=== PATIENT | male | born 1995 | race Caucasian/White ===

== ENCOUNTER 2017-02-10 10:04 | Day surgery (SDC) | payer OTHER ==
[~2017-02-10] VITALS: Ht 177.8 cm; Wt 104.5 kg
[2017-02-10] VITALS (10 sets, daily range): BP systolic 150–168; BP diastolic 64–90; PULSE 86–127; RESP 12–22; O2SAT 96–100
--- NOTE | 2017-02-10 06:41 | PCM.HPANE ---
Patient Data Surgeon Admitting Provider: Attending Provider:Hoa Ahmadi MD Primary Care Physician:Kenia Arora Other Provider:Chadd Duque Anesthesia Reason for Visit Orif Right 4TH& 5TH Metacarpal Ht/WT & BMI Height (Feet): 5 Height (Inches): 10 Weight (Kilograms): 108.86 Body Mass Index 34.00 Allergies Coded Allergies: Penicillins (Verified Allergy, Unknown, hives, 02/08/17) Past Anesthesia History Anesthesia History: Denies:: Anesthesia Reactions (unknown) Diabetes History Hx Diabetes?: No Medications Reported Medications Ibuprofen 800 Mg [id number] Mg PO TID PRN For Pain Ref 0 02/08/17 Hydrocodone-Acetaminophen 5-325 mg 1 Each Tablet1 Tablet PO Q6H PRN For Pain Ref 0 02/08/17 History History of ENT Problems?: Yes HEENT History: Positive for:: Sinus Problem (deviated septum, chronic sinusitis) Denture Type: None Teeth Condition: Within Normal Limits Hx of Heart Problems?: No Cardiovascular History: Denies:: AICD Abdominal Aortic Aneurism Atrial Fibrillation Cardiac Surgery Chest Pain Congestive Heart Failure Coronary Artery Disease Edema Heart Murmur Hypertension Irregular Heartbeat Pacemaker Peripheral Vascular Rheumatic Fever Thrombophlebitis Valvular Heart Disease Hx of Respiratory Problem?: No Respiratory History: Denies:: Oxygen Administration Use of C-PAP Machine Hx Neurologic Problems?: No Hx of GI Problems?: No Hx of Problems?: No Male Hx: Denies:: Prostate Problems Hx Musculoskeletal Problems?: Yes Musculoskeletal History: Positive for:: Musculoskeletal Trauma (right hand fx - current admission problem) Hx of Psycho/Social Problems?: No Hx Surgeries?: No (unknown) Hx Any Other Health Problems?: No Other History: Denies:: Cancer Thyroid Disease Hx Diabetes: No Have You Smoked inLast 12 mo: No Stop/Bang S-Snoring: Do You Snore Loudly: Yes T-Tired: feel tired, fatigued: No O-Obsered: Observed not breath: No P-Blood Pressure: treated: No B- Body Mass Index > 35 kg/m2: No A- Age over 50: No N- Neck Large Circumference: No G- Gender Male: Yes ANNELIESE Total Score: 2 ANNELIESE Risk Assessment: Low Risk, <3 Yes Risk Assessment Category Category 1A: Patient has history of documented sleep apnea, and HAS NOT received any narcotic, sedative or anesthesia administration during this stay. Category 1B: Patient has history of documented sleep apnea, and HAS received any narcotic , sedative or anesthesia administration during this stay Category 2: Patient has SUSPECTED Obstructive Sleep Apnea, and HAS received any narcotic , sedative or anesthesia administration during this stay. Category 3: Patient has SUSPECTED Obstructive Sleep Apnea and HAS NOT received narcotic, sedative or anesthesia administration during this stay. Category 4: Outpatient in Procedural Areas with known sleep apnea or who screen positive for High Risk via the STOP/BANG questionnaire. Exam Exam General Appearance: Alert, Oriented X3, Cooperative, No Acute Distress HEENT/AIRWAY: MP 2 Lungs: Clear to Auscultation, Normal Air Movement Heart: Exam Unremarkable, Regular Rate/Rhythm, No Murmurs/Rubs/Gallops Plan Impression Patient chart reviewed, patient interviewed and anesthestic plan with risks, benefits, and alternatives discussed, and informed consent obtained. ASA Physical Status: ASA2 Mod Systemic Disease Anesthetic Plan: GA Bene/Risks/Altern/Consents: Yes HP Complete Prior to Induction: Yes Mor Francisco MD Feb 10, 2017 06:41
[~2017-02-10 10:04] MED LIST: Clindamycin 900 mg/50 mL D5W IV ONE; HYDR-4003 PO; IBUP800T28 PO; Lactated Ringer's 1,000 ML IV SCH
[2017-02-10] MEDS ORDERED: Ondansetron 2 mg/mL 2 mL Inj ONE (10:05)
[2017-02-10] MEDS ORDERED: Dexamethasone 4 mg/mL Inj ONE (10:05)
[2017-02-10] MEDS ORDERED: fentaNYL-PF 50 mCg/mL 2 mL Inj ONE (10:05)
[2017-02-10] MEDS ORDERED: Propofol 10,000 mCg/mL 20 mL Inj ONE (10:05)
[2017-02-10] MEDS ORDERED: HYDROmorphone 2 mg/mL Inj ONE (10:05)
[2017-02-10] MEDS: Lactated Ringer's 1,000 ML IV SCH ×2 (11:07→12:43)
[2017-02-10] MEDS ORDERED: Bupivacaine-MPF 0.5% 30 mL Inj INFILTRATE ONE (13:22)
[2017-02-10] MEDS ORDERED: Lactated Ringer's 1,000 ML IV SCH (13:28)
[2017-02-10] MEDS ORDERED: Lactated Ringer's 500 ML IV PRN (13:28)
[2017-02-10] MEDS ORDERED: EPHEDrine Sulfate 50 mg/mL Inj IVPUSH PRN (13:30)
[2017-02-10] MEDS ORDERED: MetoCLOpramide 5 mg/mL 2 mL Inj IVPUSH PRN (13:30)
[2017-02-10] MEDS ORDERED: Ondansetron 2 mg/mL 2 mL Inj IVPUSH PRN (13:30)
[2017-02-10] MEDS ORDERED: Phenylephrine 10,000 mCg/mL Inj IVPUSH PRN (13:30)
[2017-02-10] MEDS ORDERED: Dexamethasone 4 mg/mL Inj IVPUSH PRN (13:30)
[2017-02-10] MEDS ORDERED: Gentamicin 40 mg/mL 2 mL Inj IRRIGATION ONE (13:32)
[2017-02-10] MEDS ORDERED: Lactated Ringer's 1,000 ML IV ONE (15:04)
[2017-02-10] MEDS ORDERED: Clindamycin Inj 900 MG in IV Premix 1 EACH IV ONE (15:05)
[2017-02-10] MEDS ORDERED: oxyCODONE-Acetamin 5-325 mg Tablet PO PRN (15:05)
--- NOTE | 2017-02-10 15:48 | PCM.ANEP1 ---
Post Anesthesia Phase 1 PACU Phase 1 Assessment Vital Signs Vital Signs Date Time Temp Pulse Resp B/P Pulse Ox O2 Delivery O2 Flow Rate FiO2 02/10/17 15:40 122 22 157/79 100 Room Air 02/10/17 15:37 36.8 127 12 150/64 100 Simple Mask 8 02/10/17 10:44 36.7 101 16 160/71 100 Room Air Anesthetic Administered: GA Level of Alertness: Awake, talking LOPEZ's with Equal Strength: Yes Pain: No Nausea or Vomiting: No Cardiovascular Function and Hy: Yes Oxygen Delivery: Room Air Lungs: Clear to Auscultation, Normal Air Movement Mor Francisco MD Feb 10, 2017 15:48
[2017-02-10] MEDS ORDERED: HYDROmorphone 0.5 mg/0.5 mL iSecure Syringe ONE ×2 (16:04→16:13)
[2017-02-10] MEDS: HYDROmorphone 1 mg/mL Inj IVPUSH PRN ×2 (16:07→16:15)
[2017-02-10] MEDS: fentaNYL-PF 50 mCg/mL 2 mL Inj IVPUSH PRN ×2 (16:18→16:52)
--- NOTE | 2017-02-10 17:09 | DRSVH ---
PROCEDURE: X-RAY RIGHT HAND, MINIMUM THREE VIEWS ([id number]) INDICATIONS: s/p R 4th and 5th metacarpal TECHNIQUE: 3 views of the hand(s) acquired. COMPARISON: [facility], , XR HAND 3VW RT, 02/07/2017, 11:56. FINDINGS: Bones: Improved alignment status post ORIF of fourth and fifth metacarpal base fractures. Surgical K wires are present traversing both the fourth and the fifth metacarpal bases embedded within the dist al carpal row. Soft tissues: No suspicious soft tissue calcifications. IMPRESSION: Improved alignment status post ORIF of fourth and fifth metacarpal base fractures. Dictated by: Karsten EDMONDS Interpreted: Haylie Hurtado MD on 02/10/2017 at 16:16 Transcribed by: ARTHUR on 02/10/2017 at 17:09 Approved by: Haylie Hurtado M.D. on 02/12/2017 at 10:00
--- NOTE | 2017-02-11 01:43 | OP ---
[address] [address] OPERATIVE REPORT PATIENT: ALEKSANDRA TRACY : 1995 MR#: [id number] ADMIT: 02/10/2017 JOB ID: [id number] DATE OF SURGERY: 02/10/2017 PREOPERATIVE DIAGNOSIS(ES): 1. Right proximal 4th fracture-dislocation at the 4th carpometacarpal joint. ICD 10 code S63.266A and S62.341A. 2. Fracture-dislocation base of the right 5th metacarpal at the carpometacarpal joint. ICD 10 code is S63.264A and S62.316A3. 3. Right hamate fracture ulnar corner ICD-10 CODE S62.141A POSTOPERATIVE DIAGNOSIS(ES): 1. Right proximal 4th fracture-dislocation at the 4th carpometacarpal joint. ICD 10 code S63.266A and S62.341A. 2. Fracture-dislocation base of the right 5th metacarpal at the carpometacarpal joint. ICD 10 code is S63.264A and S62.316A. 3. Right hamate fracture ulnar corner ICD-10 CODE S62.141A PROCEDURE: Open reduction and internal fixation right 4th and 5th proximal metacarpal fracture-dislocations at the carpometacarpal joints. CPT code 36832 x2. Open treatment right hamate fracture CPT CODE -77427 SURGEON: aHo Ahmadi MD. ELECTRICAL ENGINEERING INTERN: None. ANESTHESIA: General. ESTIMATED BLOOD LOSS: Less than 5 mL. MISCELLANEOUS: Supplemental metacarpal nerve block performed by surgeon for postoperative analgesia. Sponge and needle count correct. No complications. INDICATIONS: This is a 21-year-old right-hand dominant male who in anger punched a floor several times, sustaining a right proximal 4th and 5th carpometacarpal fracture-dislocations at the carpometacarpal joints. The base of the 4th metacarpal was the most comminuted. He also had a fracture at the ulnar corner of the hamate. Injury occurred roughly 3-4 weeks ago. The patient was just recently seen in the office this week. PROCEDURE: Under adequate general anesthetic, a well-padded tourniquet was applied to the right upper extremity. The right arm was prepped and draped in sterile fashion. After appropriate time-out was called, the arm was elevated, exsanguinated, and tourniquet inflated to 250 mmHg. A longitudinal incision was fashioned between the 4th and 5th metacarpals, taking care to protect the extensor tendons as well as the dorsal sensory ulnar nerve branches. Please note, the patient did have some preoperative numbness and tingling in the dorsal aspect of the hand, and to a less extent occasional tingling over the volar aspect of the ring and little fingers. The joint capsule was exposed and opened over the 4th and 5th metacarpals. The 5th metacarpal was dislocated dorsally and there also appeared to be a small fracture of the tip of the hamate. The base of the 4th metacarpal was exposed and there was some comminution at the proximal aspect. Both the metacarpals were reduced but were unstable. The 5th metacarpal, which only had a small chip avulsion at the carpometacarpal joint, was first reduced and stabilized with a K-wire directed from the proximal ulnar direction across into the hamate. Image intensification confirmed good position of the pin utilizing the mini C-arm. Care was taken to make sure that there was normal rotation of the little finger. Attention was next turned to the ring finger. There was comminution of the ring fracture base. The fracture-dislocation was reduced and then held first with a K-wire from proximal ulnar direction directed into the capitate and a second K-wire directed in a crossed fashion from proximal radial direction into the hamate. Image intensification confirmed good position of the K-wires. When checking the rotational position of the finger it appeared that there was still some residual rotational deformity. Both those K-wires were backed out from across the carpometacarpal joint and the finger rotation was corrected, and then the K-wires were driven back across the carpometacarpal joint. Image intensification confirmed good position of the pins and the finger was in good rotational control. Please note one of the K-wires was used was a 0.62 K-wire and one 0.45 K-wire. The first K-wire that was utilized in the base of the 5th metacarpal was the 0.45 K-wire. Those K-wires were cut and bent under the skin. In order to provide additional stability, a horizontal K-wire was directed from the base of the 5th metacarpal into the 4th metacarpal and then into the 3rd metacarpal. There was good positioning of all the K-wires and that last K-wire was cut and bent under the skin. Permanent pictures were taken with the mini C-arm. The wound was irrigated with antibiotic solution and infiltrated with 0.5% plain Marcaine. I also performed a metacarpal nerve block for the 4th and 5th fingers to help with postoperative analgesia. Tourniquet was released. Minimal hemostasis required. The joint capsule was closed with interrupted sutures of 3-0 Vicryl. Subcutaneous layers were closed with interrupted sutures of 4-0 Monocryl. Skin was reapproximated with running subcuticular suture of 4-0 Monocryl. Mastisol and Steri-Strips were applied. The Monocryl sutures were brought out through the edges of the skin and will need to be cut flush with the skin upon the patient's return to the clinic in two weeks. Xeroform dry sterile dressings were applied and the patient was placed in a bulky short-arm fiberglass splint incorporating the long, ring and little fingers. The patient was taken to recovery room in stable condition. Sponge and needle count correct. No complications. PLAN: The patient will be seen back in the office in two weeks with one of the PAs for short-arm splint removal. The patient will need to have a new type of immobilization to protect the repair. I would suggest that he at that time could be placed in a short-arm cast allowing range of motion at the metacarpophalangeal joints. The patient may also Coban wrap the long, ring and little fingers, the proximal aspects, for additional protection, but should allow range of motion of the metacarpophalangeal joints. The patient was discharged to home on clindamycin, as well as Percocet 10/325, and some Zofran as needed for nausea. Hand therapy should be consulted to have the patient be shown finger range of motion exercises to avoid significant stiffness. This patient has anxiety issues and some learning disability and needs to be closely followed with hand therapy. They may also make him a velcro karolyn strap for the long, ring and little fingers. Anticipate will remove the k-wires at about 8 weeks to allow for sufficient healing. Any cast applied with need additional padding over the ulnar aspect to avoid pressure on the pins. CC: [facility] CC: Harpreet Stone
[2017-03-22] MEDS ORDERED: ONDA4TAB6 PO (12:32)
== END 2017-02-10 23:59 | disposition home or self-care (01) ==
LOC: SAS 10:04
PROVIDERS: ATTEND Orthopaedic Surgery
DX: S63.266A Dislocation of metacarpophalangeal joint of right little finger, initial encounter (principal); S63.264A Dislocation of metacarpophalangeal joint of right ring finger, initial encounter; S62.314A Displaced fracture of base of fourth metacarpal bone, right hand, initial encounter for closed fracture; S62.316A Displaced fracture of base of fifth metacarpal bone, right hand, initial encounter for closed fracture; W22.09XA Striking against other stationary object, initial encounter; Y93.9 Activity, unspecified; Y92.9 Unspecified place or not applicable; J45.909 Unspecified asthma, uncomplicated; E66.9 Obesity, unspecified; Z68.34 Body mass index [BMI] 34.0-34.9, adult; L70.9 Acne, unspecified
CPT/HCPCS: 26685; 73130; J1100; J1170; J1580; J2175; J2250; J2405; J2765; J3010; J7120

== ENCOUNTER 2017-03-24 06:25 | Day surgery (SDC) | payer OTHER ==
[~2017-03-24] VITALS: Ht 177.8 cm; Wt 104.8 kg
[2017-03-24] VITALS (8 sets, daily range): BP systolic 125–151; BP diastolic 70–80; PULSE 83–125; RESP 13–20; O2SAT 97–99
[~2017-03-24 06:25] MED LIST changes: -Clindamycin 900 mg/50 mL D5W IV ONE; +Clindamycin Inj 900 MG in IV Premix 1 EACH IV ONE; -HYDR-4003 PO; +ONDA4TAB6 PO
[2017-03-24] MEDS ORDERED: Propofol 10,000 mCg/mL 20 mL Inj ONE (06:26)
[2017-03-24] MEDS ORDERED: Ondansetron 2 mg/mL 2 mL Inj ONE (06:26)
[2017-03-24] MEDS ORDERED: Dexamethasone 4 mg/mL Inj ONE (06:26)
[2017-03-24] MEDS ORDERED: fentaNYL-PF 50 mCg/mL 2 mL Inj ONE (06:26)
[2017-03-24] MEDS ORDERED: Ketamine 10 mg/mL 20 mL Inj ONE (06:26)
[2017-03-24] MEDS ORDERED: Lactated Ringer's 1,000 ML IV ONE (06:39)
[2017-03-24] MEDS ORDERED: HYDROcodone-APAP 7.5-325 mg Tablet PO PRN ×2 (07:15→07:20)
[2017-03-24] MEDS ORDERED: Lactated Ringer's 500 ML IV PRN (07:43)
[2017-03-24] MEDS ORDERED: Lactated Ringer's 1,000 ML IV SCH (07:43)
--- NOTE | 2017-03-24 07:43 | PCM.HPANE ---
Patient Data Surgeon Admitting Provider: Attending Provider:Kelby Saucedo DO Primary Care Physician:Kenia Arora Other Provider:Chadd Duque Anesthesia Reason for Visit Right Hand Retained Hardware Ht/WT & BMI Height (Feet): 5 Height (Inches): 10 Weight (Kilograms): 104.780 Body Mass Index 33.00 Allergies Coded Allergies: Penicillins (Verified Allergy, Severe, hives, 03/22/17) Past Anesthesia History Anesthesia History: Denies:: Abnormal Airway, Anesthesia Reactions, Difficult Intubation, Malignant Hyperthermia Diabetes History Hx Diabetes?: No MRSA MRSA: No Medications Hypertension Medication: No Home Meds Incl Beta Dominick: No Reported Medications Ondansetron (Zofran)4 Mg Tablet4 Mg PO BID PRN For Nausea 03/22/17 Ibuprofen 800 Mg [id number] Mg PO TID PRN For Pain Ref 0 02/08/17 Discontinued Reported Medications Hydrocodone-Acetaminophen 5-325 mg 1 Each Tablet1 Tablet PO Q6H PRN For Pain Ref 0 02/08/17 History History of ENT Problems?: Yes HEENT History: Positive for:: Sinus Problem (deviated septum, chronic sinusitis) Denies:: Abnormal Airway Difficult Intubation Denture Type: None Teeth Condition: Within Normal Limits Hx of Heart Problems?: No Cardiovascular History: Denies:: AICD Abdominal Aortic Aneurism Atrial Fibrillation Cardiac Surgery Chest Pain Congestive Heart Failure Edema Heart Murmur Hypertension Irregular Heartbeat Pacemaker Rheumatic Fever Thrombophlebitis Valvular Heart Disease Hx of Respiratory Problem?: Yes Respiratory History: Positive for:: Asthma (HX OF) Denies:: Oxygen Administration Use of C-PAP Machine Hx Neurologic Problems?: No Hx of GI Problems?: Yes Other GI Pertinent History: C/OF DIARRHEA Hx of Problems?: No Male Hx: Denies:: Prostate Problems Scrotal Mass Testicular Surgery Skin History: Positive for:: History Skin Disorders? (ACNE) Denies:: Pressure Ulcers Hx Musculoskeletal Problems?: Yes Musculoskeletal History: Positive for:: Musculoskeletal Trauma (S/P ORIF RT 4, 5 METACARPAL RETAINED DEEP HDWRE RT HAND=CURRENT PROBLEM) Hx of Psycho/Social Problems?: No Hx Surgeries?: Yes (ORIF RT 4,5 METACARPAL) Hx Any Other Health Problems?: Yes Other History: Denies:: Cancer Endocrine Disease Hospitalization Thyroid Disease Hx Diabetes: No Smoking Status: Never Smoker Have You Smoked inLast 12 mo: No Stop/Bang Treated for Sleep Apnea?: No Do You Have a CPAP Machine?: No S-Snoring: Do You Snore Loudly: No T-Tired: feel tired, fatigued: No O-Obsered: Observed not breath: No P-Blood Pressure: treated: No B- Body Mass Index > 35 kg/m2: No A- Age over 50: No N- Neck Large Circumference: Yes G- Gender Male: Yes ANNELIESE Total Score: 2 ANNELIESE Risk Assessment: Low Risk, <3 Yes Risk Assessment Category Category 1A: Patient has history of documented sleep apnea, and HAS NOT received any narcotic, sedative or anesthesia administration during this stay. Category 1B: Patient has history of documented sleep apnea, and HAS received any narcotic , sedative or anesthesia administration during this stay Category 2: Patient has SUSPECTED Obstructive Sleep Apnea, and HAS received any narcotic , sedative or anesthesia administration during this stay. Category 3: Patient has SUSPECTED Obstructive Sleep Apnea and HAS NOT received narcotic, sedative or anesthesia administration during this stay. Category 4: Outpatient in Procedural Areas with known sleep apnea or who screen positive for High Risk via the STOP/BANG questionnaire. Exam Exam Vital Signs Vital Signs Date Time Temp Pulse Resp B/P Pulse Ox O2 Delivery O2 Flow Rate FiO2 03/24/17 06:40 37.5 119 20 151/71 97 Room Air General Appearance: Alert, Oriented X3, Cooperative, No Acute Distress HEENT/AIRWAY: MP 2 Lungs: Clear to Auscultation, Normal Air Movement Heart: Exam Unremarkable, Regular Rate/Rhythm, No Murmurs/Rubs/Gallops Meds/Labs/Diagnostics Admission Meds Current Medications Lactated Ringer's (Lr) 1,000 ml @ ud STK-MED ONCE IV Last administered on t 06:39; Start 03/24/17 at 06:39; Stop 03/24/17 at 06:40; Status DC Plan Impression Patient chart reviewed, patient interviewed and anesthestic plan with risks, benefits, and alternatives discussed, and informed consent obtained. ASA Physical Status: ASA1 Normal Healthy Anesthetic Plan: GA Bene/Risks/Altern/Consents: Yes HP Complete Prior to Induction: Yes Elliot Segal MD Mar 24, 2017 07:43
[2017-03-24] MEDS ORDERED: HYDROmorphone 1 mg/mL Inj IVPUSH PRN (07:45)
[2017-03-24] MEDS ORDERED: Ondansetron 2 mg/mL 2 mL Inj IVPUSH PRN (07:45)
[2017-03-24] MEDS ORDERED: MetoCLOpramide 5 mg/mL 2 mL Inj IVPUSH PRN (07:45)
[2017-03-24] MEDS ORDERED: EPHEDrine Sulfate 50 mg/mL Inj IVPUSH PRN (07:45)
[2017-03-24] MEDS ORDERED: fentaNYL-PF 50 mCg/mL 2 mL Inj IVPUSH PRN (07:45)
[2017-03-24] MEDS ORDERED: Phenylephrine 10,000 mCg/mL Inj IVPUSH PRN (07:45)
[2017-03-24] MEDS ORDERED: Dexamethasone 4 mg/mL Inj IVPUSH PRN (07:45)
[2017-03-24] MEDS ORDERED: Lidocaine 1%-Epi 1:100,000 20 mL Inj INFILTRATE ONE (08:25)
[2017-03-24] MEDS ORDERED: HYDROmorphone 0.5 mg/0.5 mL iSecure Syringe ONE (09:10)
--- NOTE | 2017-03-24 09:26 | OP ---
[address] [address] OPERATIVE REPORT PATIENT: ALEKSANDRA TRACY : 1995 MR#: [id number] ADMIT: 03/24/2017 JOB ID: [id number] DATE OF SURGERY: 03/24/2017 PREOPERATIVE DIAGNOSIS(ES): Right retained deep orthopedic hardware. POSTOPERATIVE DIAGNOSIS(ES): Right retained deep orthopedic hardware. PROCEDURE: Removal of deep orthopedic hardware, consisting of K-wires x4. SURGEON: Kleby Saucedo D.O. ANESTHESIA: General. HISTORY: The patient is a pleasant 29-year-old male that sustained 4th and 5th metacarpal base fractures as well as a hamate fracture treated by Hao Ahmadi M.D. He was treated with also cast immobilization. The patient as well as the family sought to seek another provider for continued treatment and offered to assist in care. The patient had been in the cast with mobilization for over five weeks and discuss with him having the hardware removed and initiating formal occupational therapy. They understood the risks include, but not limited to, neurovascular injury, tendon injury, infection, stiffness, persistent pain, all of which may require further intervention. The patient had all questions answered. Consent was signed and placed in the chart. PROCEDURE IN DETAIL: The patient was brought to the operative suite and placed supine on the operating room table. Surgical time-out was performed. Everyone in the room was in agreement. After appropriate anesthesia was obtained, a right upper arm tourniquet was applied and the right upper extremity was prepped and draped in a sterile fashion. Right upper extremity was then exsanguinated and the tourniquet inflated to 250 mmHg. The patient's previous proximal aspect of the incision was utilized. Dissection was carried down to the overlying extensor tendons. The extensor tendons were retracted out of the way and the 4th metacarpal base approached first. The K-wires were identified, one on the radial and ulnar aspect of the basin were removed manually without any complication. Next the 5th metacarpal base was exposed. The K-wire along the ulnar aspect as well as the transverse K-wire was removed under direct visualization without any complication. Copious irrigation was performed followed by closure of the skin with 5-0 nylon in a simple interrupted fashion. The patient's 4th and 5th metacarpophalangeal joints had significant stiffness and were only able to be flexed to about 45 degrees. Manipulation under anesthesia was performed to both the 4th and 5th metacarpophalangeal joints allowing for 100 degrees of flexion and the patient being able to place into a full composite fist. Final radiographic projections on fluoroscopy were utilized to demonstrate healing fractures as well as evidence of the removed K-wire. The patient was placed in a bulky soft dressing. ESTIMATED BLOOD LOSS: Less than 1 cc. COMPLICATIONS: None. DISPOSITION: The patient tolerated the procedure well. Anesthesia was reversed. The patient was transferred back to recovery. POSTOPERATIVE PLAN: The patient will continue with occupational therapy. He has an appointment tomorrow to continue working aggressively on range of motion of the right hand. The patient will followup in my office in two weeks for repeat x-rays at the time and progress further with his therapy.
--- NOTE | 2017-03-24 10:36 | PCM.ANEP1 ---
Post Anesthesia PACU Phase 1 Assessment Vital Signs Vital Signs Date Time Temp Pulse Resp B/P Pulse Ox O2 Delivery O2 Flow Rate FiO2 03/24/17 09:26 83 13 128/70 99 Room Air 03/24/17 09:15 36.6 90 15 135/75 98 Room Air 03/24/17 09:10 92 16 141/75 98 Room Air 03/24/17 09:05 103 15 141/80 97 Room Air 03/24/17 09:00 125 13 131/77 97 Room Air 03/24/17 08:55 36.7 125/70 03/24/17 06:40 37.5 119 20 151/71 97 Room Air Anesthetic Administered: GA Level of Alertness: Awake, talking LOPEZ's with Equal Strength: Yes Pain: No Nausea or Vomiting: No CV Function & Hydration Stable: Yes Airway Device: Oralpharangeal Airway Oxygen Delivery: Nasal Cannula Lungs: Clear to Auscultation, Normal Air Movement Dermatome Level: Full Sensation PACU Phase 2 Assessment Complications: No Follow up Care: No Patient Instructions Provided: Yes Elliot Segal MD Mar 24, 2017 10:36
== END 2017-03-24 23:59 | disposition home or self-care (01) ==
LOC: SAS 06:25
PROVIDERS: ATTEND Orthopaedic Surgery
DX: S62.314D Displaced fracture of base of fourth metacarpal bone, right hand, subsequent encounter for fracture with routine healing (principal)
CPT/HCPCS: 20680; J1100; J1170; J2250; J2405; J3010; J7120